=== PATIENT | male | born 1960 | race Caucasian/White ===

== ENCOUNTER → 2016-12-11 | Outpatient (CLI) | payer OTHER ==
[~2016-12-11] MED LIST: ACET-1757 PO; DIPH25CA61 PO; HYDR-882 PO; OMNIPAQUE 350 MG/ML, 100ML BOTTLE ONE; TAMS-11 PO
== END | disposition home or self-care (01) ==
LOC: CFH 10:54
PROVIDERS: ATTEND Internal Medicine Hematology & Oncology
DX: C21.1 Malignant neoplasm of anal canal (principal)
CPT/HCPCS: 71260; 74177; Q9967

== ENCOUNTER → 2017-06-02 | Outpatient (CLI) | payer OTHER | END | disposition home or self-care (01) | LOC: CFH 08:11 | PROVIDERS: ATTEND Internal Medicine Hematology & Oncology | DX: C21.1 Malignant neoplasm of anal canal (principal); N28.1 Cyst of kidney, acquired; Z93.3 Colostomy status | CPT/HCPCS: 71260; 74177; Q9967 ==

== ENCOUNTER → 2018-06-10 | Outpatient (CLI) | payer OTHER | END | disposition home or self-care (01) | LOC: CFH 08:48 | PROVIDERS: ATTEND Internal Medicine Hematology & Oncology | DX: N28.1 Cyst of kidney, acquired (principal); C21.1 Malignant neoplasm of anal canal | CPT/HCPCS: 71260; 74177; Q9967 ==

== ENCOUNTER 2020-12-05 18:10 | Inpatient (IN) | payer OTHER ==
[~2020-12-05] VITALS: Ht 182.9 cm; Wt 89.0 kg
[~2020-12-05 18:10] MED LIST changes: -OMNIPAQUE 350 MG/ML, 100ML BOTTLE ONE
--- NOTE | 2020-12-05 18:36 | NUR ---
PT AMBULATED TO ROOM, CHANGED INTO GOWN. MONITORS IN PLACE. NAD NOTED. COMFORT MEASURES PROVIDED
[2020-12-05] MEDS ORDERED: SODIUM CHLORIDE FLUSH 10ML SYR IVF ONE (19:30)
[2020-12-05 19:51] LABS: BASOPHILS % (AUTO) 1 % (0-1); EOSINOPHILS % (AUTO) 7 % (1-7); LYMPHOCYTES % (AUTO) 11 % (22-44); MEAN CORPUSCULAR HGB CONC 34.1 g/dL (33.2-36.2); MEAN PLATELET VOLUME 7.7 fL (7.4-10.4); MONOCYTES % (AUTO) 9 % (2-9); NEUTROPHILS % (AUTO) 72 % (42-75); PLATELET COUNT 221 x10^3/uL (130-400); RED BLOOD COUNT 3.96 x10^6/uL (4.38-5.82); RED CELL DISTRIBUTION WIDTH 13.6 % (9.4-14.8)
[2020-12-05 19:53] LABS: MD NO
[2020-12-05 19:54] LABS: MICROSCOPIC NOT IND
[2020-12-05 19:57] LABS: ALANINE AMINOTRANSFERASE 45 U/L (12-78); ALBUMIN 3.6 g/dL (3.4-5.0); ANION GAP 9 mmol/L (5-15); CALCIUM 8.6 mg/dL (8.5-10.1); CHLORIDE 108 mmol/L (98-107); CREATININE 1.51 mg/dL (0.7-1.3)
[2020-12-05 19:59] LABS: ALKALINE PHOSPHATASE 96 U/L (45-117); BILIRUBIN,TOTAL 0.2 mg/dL (0.2-1.0); TOTAL PROTEIN 7.2 g/dL (6.4-8.2)
[2020-12-05] MEDS ORDERED: SODIUM CHLORIDE FLUSH 10ML SYR IVF PRN (21:00)
[2020-12-05] MEDS ORDERED: BISACODYL 10 MG SUPP PR PRN (21:00)
[2020-12-05] MEDS ORDERED: ONDANSETRON ODT 4 MG PO PRN (21:00)
[2020-12-05] MEDS ORDERED: POLYETHYLENE GLYCOL 17 GM PACKET PO PRN (21:00)
[2020-12-05] MEDS ORDERED: morphine SULFATE 10 MG/ML, 1ML IVPush PRN (21:00)
[2020-12-05] MEDS: SODIUM CHLORIDE 0.9% 1,000 ML IV SCH (22:05)
[2020-12-05 22:13] VITALS: BP 151/92
[2020-12-05 22:32] LABS: CHLORIDE,URINE RANDOM 150 mmol/L; POTASSIUM,URINE RANDOM 33 mmol/L; SODIUM,URINE RANDOM 147 mmol/L
[2020-12-05] MEDS: ACETAMINOPHEN 325 MG TABLET PO PRN (23:23)
[2020-12-06 01:49] VITALS: BP 148/85
[2020-12-06 05:39] LABS: BASOPHILS % (AUTO) 1 % (0-1); EOSINOPHILS % (AUTO) 7 % (1-7); LYMPHOCYTES % (AUTO) 11 % (22-44); MEAN CORPUSCULAR HEMOGLOBIN 33.4 pg (27.5-34.5); MEAN CORPUSCULAR HGB CONC 34.4 g/dL (33.2-36.2); MEAN PLATELET VOLUME 7.3 fL (7.4-10.4); MONOCYTES % (AUTO) 9 % (2-9); NEUTROPHILS % (AUTO) 73 % (42-75); PLATELET COUNT 184 x10^3/uL (130-400); RED BLOOD COUNT 3.75 x10^6/uL (4.38-5.82); RED CELL DISTRIBUTION WIDTH 13.7 % (9.4-14.8)
[2020-12-06 05:46] LABS: MD NO
[2020-12-06 05:51] LABS: CHLORIDE 110 mmol/L (98-107)
[2020-12-06 05:56] LABS: ANION GAP 7 mmol/L (5-15); CREATININE 1.38 mg/dL (0.7-1.3)
[2020-12-06] MEDS: SODIUM CHLORIDE 0.9% 1,000 ML IV SCH ×2 (07:58→23:20)
[2020-12-06] MEDS: TAMSULOSIN 0.4 MG CAP.ER.24H PO SCH (07:58)
[2020-12-06] MEDS: ACETAMINOPHEN 325 MG TABLET PO PRN ×2 (07:58→13:07)
[2020-12-06 08:18] VITALS: BP 144/91
[2020-12-06] MEDS ORDERED: SENNA/DOCUSATE TABLET PO SCH (09:00)
[2020-12-06] MEDS ORDERED: LIDOCAINE 1%, 10ML ONE (13:32)
[2020-12-06] MEDS ORDERED: MIDAZOLAM 1 MG/ML, 5ML ONE (13:40)
[2020-12-06] MEDS ORDERED: NALOXONE 1 MG/ML, 2ML ONE (13:40)
[2020-12-06] MEDS ORDERED: FLUMAZENIL 0.1 MG/1 ML, 5ML ONE (13:40)
[2020-12-06] MEDS ORDERED: FENTANYL PF 100 MCG/2ML ONE (13:40)
[2020-12-06 15:09] VITALS: BP 147/80
[2020-12-06] MEDS: AMOXICILLIN/CLAV 875-125MG TABLET PO SCH ×2 (16:09→23:05)
[2020-12-06 18:42] VITALS: BP 158/90
[2020-12-06] MEDS: SENNA/DOCUSATE TABLET PO SCH (21:17)
[2020-12-07 01:13] VITALS: BP 133/76
[2020-12-07] MEDS: SODIUM CHLORIDE 0.9% 1,000 ML IV SCH (04:00)
[2020-12-07 06:39] VITALS: BP 145/83
[2020-12-07] MEDS: AMOXICILLIN/CLAV 875-125MG TABLET PO SCH ×2 (08:40→21:00)
[2020-12-07] MEDS: SENNA/DOCUSATE TABLET PO SCH ×2 (08:40→21:00)
[2020-12-07] MEDS: TAMSULOSIN 0.4 MG CAP.ER.24H PO SCH (08:40)
[2020-12-07 12:48] VITALS: BP 162/77
[2020-12-07 13:59] LABS: ANION GAP 4 mmol/L (5-15); CALCIUM 8.7 mg/dL (8.5-10.1); CHLORIDE 108 mmol/L (98-107); CREATININE 1.41 mg/dL (0.7-1.3)
[2020-12-07] MEDS: ENOXAPARIN 40 MG/0.4 ML SQ SCH (14:00)
[2020-12-07 19:22] VITALS: BP 144/76
[2020-12-08 01:03] VITALS: BP 145/87
[2020-12-08 04:58] LABS: ANION GAP 4 mmol/L (5-15); CALCIUM 9.2 mg/dL (8.5-10.1); CHLORIDE 110 mmol/L (98-107); CREATININE 1.41 mg/dL (0.7-1.3)
[2020-12-08 06:33] VITALS: BP 145/88
[2020-12-08] MEDS: AMOXICILLIN/CLAV 875-125MG TABLET PO SCH ×2 (09:16→21:18)
[2020-12-08] MEDS: TAMSULOSIN 0.4 MG CAP.ER.24H PO SCH (09:16)
[2020-12-08] MEDS: SENNA/DOCUSATE TABLET PO SCH ×2 (09:16→21:18)
[2020-12-08 12:10] VITALS: BP 150/95
[2020-12-08] MEDS: ENOXAPARIN 40 MG/0.4 ML SQ SCH (14:08)
[2020-12-08 20:06] VITALS: BP 149/78
[2020-12-09 00:50] VITALS: BP 143/87
[2020-12-09 06:01] LABS: ANION GAP 6 mmol/L (5-15); CALCIUM 8.7 mg/dL (8.5-10.1); CHLORIDE 108 mmol/L (98-107); CREATININE 1.51 mg/dL (0.7-1.3)
[2020-12-09 06:02] LABS: BASOPHILS % (AUTO) 1 % (0-1); EOSINOPHILS % (AUTO) 9 % (1-7); LYMPHOCYTES % (AUTO) 10 % (22-44); MEAN CORPUSCULAR HEMOGLOBIN 33.4 pg (27.5-34.5); MEAN CORPUSCULAR HGB CONC 34.2 g/dL (33.2-36.2); MEAN PLATELET VOLUME 7.9 fL (7.4-10.4); MONOCYTES % (AUTO) 9 % (2-9); NEUTROPHILS % (AUTO) 71 % (42-75); PLATELET COUNT 181 x10^3/uL (130-400); RED BLOOD COUNT 3.87 x10^6/uL (4.38-5.82); RED CELL DISTRIBUTION WIDTH 13.7 % (9.4-14.8)
[2020-12-09 06:04] LABS: MD NO
[2020-12-09 06:26] VITALS: BP 143/88
[2020-12-09] MEDS: SENNA/DOCUSATE TABLET PO SCH ×2 (07:59→20:32)
[2020-12-09] MEDS: AMOXICILLIN/CLAV 875-125MG TABLET PO SCH (07:59)
[2020-12-09] MEDS: TAMSULOSIN 0.4 MG CAP.ER.24H PO SCH (07:59)
[2020-12-09] MEDS: ENOXAPARIN 40 MG/0.4 ML SQ SCH (08:00)
[2020-12-09 13:26] VITALS: BP 137/85
[2020-12-09 19:12] VITALS: BP 142/90
[2020-12-10 01:43] VITALS: BP 126/81
[2020-12-10 05:12] LABS: BASOPHILS % (AUTO) 1 % (0-1); EOSINOPHILS % (AUTO) 8 % (1-7); LYMPHOCYTES % (AUTO) 10 % (22-44); MEAN CORPUSCULAR HEMOGLOBIN 33.2 pg (27.5-34.5); MEAN CORPUSCULAR HGB CONC 34.4 g/dL (33.2-36.2); MEAN PLATELET VOLUME 7.6 fL (7.4-10.4); MONOCYTES % (AUTO) 10 % (2-9); NEUTROPHILS % (AUTO) 71 % (42-75); PLATELET COUNT 169 x10^3/uL (130-400); RED CELL DISTRIBUTION WIDTH 13.2 % (9.4-14.8)
[2020-12-10 05:15] LABS: MD NO
[2020-12-10 05:21] LABS: ANION GAP 4 mmol/L (5-15); CHLORIDE 107 mmol/L (98-107); CREATININE 1.53 mg/dL (0.7-1.3)
[2020-12-10 06:33] VITALS: BP 136/89
[2020-12-10] MEDS: SENNA/DOCUSATE TABLET PO SCH (09:18)
[2020-12-10] MEDS: TAMSULOSIN 0.4 MG CAP.ER.24H PO SCH (09:18)
[2020-12-10] MEDS: ENOXAPARIN 40 MG/0.4 ML SQ SCH (09:19)
[2020-12-10 13:04] VITALS: BP 145/83
[2020-12-10] MEDS ORDERED: SENN-220 PO (15:14)
[2020-12-10] MEDS ORDERED: HYDR-3237 PO (15:14)
[2020-12-10] MEDS ORDERED: TAMS-11 PO (15:14)
== END 2020-12-10 16:26 | disposition home or self-care (01) | DRG 803 ==
LOC: ED 20:45 → EDIP 20:52 → ED 21:35 → 3N 21:55 → 4NW 12-06 07:37
PROVIDERS: ADMIT Family Medicine; ATTEND Family Medicine
PROC: 07BD3ZX Excision of Aortic Lymphatic, Percutaneous Approach, Diagnostic (ICD-10-PCS; principal; 2020-12-06)
DX: R59.0 Localized enlarged lymph nodes (principal); N13.1 Hydronephrosis with ureteral stricture, not elsewhere classified; N13.8 Other obstructive and reflux uropathy; N17.9 Acute kidney failure, unspecified; D64.9 Anemia, unspecified; N43.3 Hydrocele, unspecified; Z20.822 Contact with and (suspected) exposure to COVID-19; Z85.048 Personal history of other malignant neoplasm of rectum, rectosigmoid junction, and anus; Z92.21 Personal history of antineoplastic chemotherapy; Z92.3 Personal history of irradiation; Z93.3 Colostomy status
CPT/HCPCS: 36415; 76870; 99285; J3490; 49180; 71045; 71250; 77012; 80048; 80053; 81003; 82378; 82436; 82570; 83735; 84133; 84300; 85025; 87635; 88305; 88333; 88342; 99156; 99157; G0378; J1650; J2250; J3010; Q0162; J2310; J7030

== ENCOUNTER → 2020-12-05 | Outpatient (CLI) | payer OTHER ==
[~2020-12-05] MED LIST changes: -ACET-1757 PO; +ACET-2065 PO; +HYDR-3653 PO; -HYDR-882 PO
== END | disposition home or self-care (01) ==
LOC: CFH 09:12
PROVIDERS: ATTEND Pathology Hematology
DX: C21.1 Malignant neoplasm of anal canal (principal); N13.30 Unspecified hydronephrosis; N13.4 Hydroureter; R59.9 Enlarged lymph nodes, unspecified
CPT/HCPCS: 74177; Q9967

== ENCOUNTER → 2021-01-04 | Outpatient (CLI) | payer OTHER ==
[~2021-01-04] MED LIST changes: +HYDR-3237 PO; +SENN-220 PO
== END | disposition home or self-care (01) ==
LOC: PETCFH 08:15
PROVIDERS: ATTEND Pathology Hematology
DX: C21.1 Malignant neoplasm of anal canal (principal); N13.30 Unspecified hydronephrosis; R59.1 Generalized enlarged lymph nodes
CPT/HCPCS: 78815; A9552

== ENCOUNTER 2021-01-08 09:44 | Day surgery (SDC) | payer OTHER ==
[~2021-01-08] VITALS: Ht 182.9 cm; Wt 94.6 kg
[2021-01-08] MEDS ORDERED: TAMS-11 PO (10:28)
[2021-01-08] MEDS ORDERED: HYDR-3237 PO (10:29)
[2021-01-08] MEDS ORDERED: SODIUM CHLORIDE 0.9% 1,000 ML IV SCH (10:30)
[2021-01-08] MEDS ORDERED: PLEASE ENTER HEIGHT AND WEIGHT MC SCH (10:30)
[2021-01-08] MEDS ORDERED: CEFAZOLIN PMX 1GM/50ML 50 ML IV ONE (10:30)
[2021-01-08] MEDS ORDERED: SENN-190 PO (10:31)
[2021-01-08] MEDS ORDERED: MORP15TA PO (10:31)
[2021-01-08 10:32] VITALS: BP 155/93
[2021-01-08] MEDS ORDERED: LIDOCAINE 1%, 10ML ONE (11:36)
[2021-01-08] MEDS ORDERED: NALOXONE 1 MG/ML, 2ML ONE (12:17)
[2021-01-08] MEDS ORDERED: MIDAZOLAM 1 MG/ML, 5ML ONE ×2 (12:17)
[2021-01-08] MEDS ORDERED: FLUMAZENIL 0.1 MG/1 ML, 5ML ONE (12:17)
[2021-01-08] MEDS ORDERED: FENTANYL PF 100 MCG/2ML ONE ×2 (12:17)
== END 2021-01-08 14:10 | disposition home or self-care (01) ==
LOC: OUT 09:44
PROVIDERS: ATTEND Student in an Organized Health Care Education/Training Program
DX: N13.1 Hydronephrosis with ureteral stricture, not elsewhere classified (principal); I10 Essential (primary) hypertension; Z79.891 Long term (current) use of opiate analgesic; Z79.899 Other long term (current) drug therapy; Z85.048 Personal history of other malignant neoplasm of rectum, rectosigmoid junction, and anus
CPT/HCPCS: 50432; 99156; 99157; C1729; C1769; C1894; J0690; J2250; J3010; J7030; J2310

== ENCOUNTER 2021-03-12 13:02 | Outpatient (CLI) | payer OTHER ==
[~2021-03-12 13:02] MED LIST changes: +MORP15TA PO; +SENN-190 PO
[2021-03-12] MEDS ORDERED: OMNIPAQUE 350 MG/ML, 100ML BOTTLE ONE (14:14)
== END 2021-03-12 23:59 | disposition home or self-care (01) ==
LOC: CFH 13:02
PROVIDERS: ATTEND Pathology Hematology
DX: C21.1 Malignant neoplasm of anal canal (principal); R59.1 Generalized enlarged lymph nodes; M51.37 Other intervertebral disc degeneration, lumbosacral region; Q78.2 Osteopetrosis
CPT/HCPCS: 74177; Q9967

== ENCOUNTER 2021-05-23 09:09 | Outpatient (CLI) | payer OTHER | END 2021-05-23 23:59 | disposition home or self-care (01) | LOC: PETCFH 09:09 | PROVIDERS: ATTEND Pathology Hematology | DX: C21.1 Malignant neoplasm of anal canal (principal); R59.1 Generalized enlarged lymph nodes | CPT/HCPCS: 78815; A9552 ==